=== PATIENT | male | born 1970 | race Caucasian/White ===

== ENCOUNTER 2019-04-06 12:30 | Inpatient (IN) | payer BC, OTHER ==
[~2019-04-06] VITALS: Ht 170.2 cm; Wt 97.5 kg
[~2019-04-06 12:30] MED LIST: BACTRIM DS TAB1 EACH PO; BENICAR20 MG; CARISOPRODOL 3350 MG PO; HYDROCHLOROTH12.5 MG PO; HYDROCHLOROTHIA25 M1; KEFLEX500 MG PO; LEVAQUIN 500 M500 M2; NAPROSYN500 MG PO; PERCOCET 5-3251 EACH PO; PREDNISONE 20 M20 MG; SOMA250 MG; ULTRAM 50MG TAB50 MG PO
[2019-04-06 12:50] VITALS: BP 160/91
[2019-04-06] MEDS ORDERED: ZESTRIL10 MG PO (12:55)
[2019-04-06] MEDS ORDERED: LOPRESSOR50 PO (12:57)
[2019-04-06 14:40] LABS: ABSOLUTE NEUTROPHILS 14.2 thou/uL (1.4-8.2); BASOPHILS 0.2 % (0.0-2.0); HEMATOCRIT 45.7 % (42.0-52.0); HEMOGLOBIN 15.6 gm/dL (14.0-18.0); LYMPHOCYTES 5.3 % (24.0-44.0); MCH 29.2 pg (26.0-34.0); MCHC 34.2 g/dL (28.0-37.0); MCV 85.3 fL (80.0-100.0); MONOCYTES 2.9 % (1.0-8.0); PLATELET COUNT 301 thou/uL (150-400); POLYS 91.6 % (36.0-66.0); RBC 5.36 mil/uL (4.50-6.00); RDW 12.8 % (10.5-14.5); WBC 15.5 thou/uL (4.0-11.0)
[2019-04-06 14:51] LABS: CALCIUM 9.6 mg/dL (8.5-10.1)
[2019-04-06 18:46] VITALS: BP 113/60
[2019-04-06] MEDS ORDERED: ZESTRIL40 MG PO (19:59)
[2019-04-06] MEDS ORDERED: INDAPAMIDE2.5 MG PO (20:00)
[2019-04-07 03:00] LABS: HEMATOCRIT 44.7 % (42.0-52.0); HEMOGLOBIN 15.2 gm/dL (14.0-18.0); MCH 29.6 pg (26.0-34.0); MCV 87.2 fL (80.0-100.0); RBC 5.12 mil/uL (4.50-6.00); RDW 12.8 % (10.5-14.5); WBC 14.7 thou/uL (4.0-11.0)
[2019-04-07 03:13] LABS: CALCIUM 8.9 mg/dL (8.5-10.1); CREATININE 1.1 mg/dL (0.7-1.3); POTASSIUM 4.4 mmol/L (3.5-5.1)
[2019-04-07 03:32] VITALS: BP 146/90
[2019-04-07 07:20] VITALS: BP 137/77
[2019-04-07 11:05] VITALS: BP 126/85
[2019-04-07 15:05] VITALS: BP 153/90
[2019-04-07 19:15] VITALS: BP 142/89
[2019-04-08 04:09] VITALS: BP 154/88
[2019-04-08 04:31] LABS: HEMATOCRIT 43.8 % (42.0-52.0); HEMOGLOBIN 14.4 gm/dL (14.0-18.0); MCH 28.7 pg (26.0-34.0); MCHC 32.9 g/dL (28.0-37.0); MCV 87.3 fL (80.0-100.0); RBC 5.01 mil/uL (4.50-6.00); RDW 12.9 % (10.5-14.5); WBC 22.9 thou/uL (4.0-11.0)
[2019-04-08 04:34] LABS: CALCIUM 8.9 mg/dL (8.5-10.1); CREATININE 1.1 mg/dL (0.7-1.3); POTASSIUM 4.6 mmol/L (3.5-5.1)
[2019-04-08 07:25] VITALS: BP 141/88
[2019-04-08 11:25] VITALS: BP 126/89
[2019-04-08 15:30] VITALS: BP 135/86
[2019-04-08 21:37] VITALS: BP 137/83
[2019-04-09 03:16] LABS: MCH 29.3 pg (26.0-34.0); MCHC 33.5 g/dL (28.0-37.0); MCV 87.5 fL (80.0-100.0); RBC 4.8 mil/uL (4.50-6.00); RDW 12.9 % (10.5-14.5); WBC 20.2 thou/uL (4.0-11.0)
[2019-04-09 03:22] LABS: CALCIUM 8.2 mg/dL (8.5-10.1); POTASSIUM 4.3 mmol/L (3.5-5.1)
[2019-04-09 03:49] VITALS: BP 138/67
[2019-04-09 07:25] VITALS: BP 150/90
[2019-04-09 16:50] VITALS: BP 152/97
[2019-04-09 19:29] VITALS: BP 150/83
[2019-04-10 04:00] VITALS: BP 140/90
[2019-04-10 08:40] VITALS: BP 155/98
[2019-04-10] MEDS ORDERED: MUCINEX DM ER1 EAC1 PO (09:23)
[2019-04-10] MEDS ORDERED: VENTOLIN HFA 1818 GM INH (09:24)
[2019-04-10] MEDS ORDERED: PREDNISONE 10 M10 MG PO (09:24)
[2019-04-10] MEDS ORDERED: LEVAQUIN 500 M500 M2 PO (09:25)
[2019-04-10 09:34] VITALS: BP 155/98
== END 2019-04-10 10:36 | disposition home or self-care (01) | DRG 192 ==
LOC: ER 12:30 → EROBS 16:31 → 2N 16:31 → ENTRNSPT 04-10 10:17 → EDTRNSPTSTS 04-10 10:23 → 2N 04-10 10:36
PROVIDERS: Emergency Medicine; ADMIT Hospitalist
DX: J44.1 Chronic obstructive pulmonary disease with (acute) exacerbation (principal); I10 Essential (primary) hypertension; F17.210 Nicotine dependence, cigarettes, uncomplicated; Z71.6 Tobacco abuse counseling; Z79.899 Other long term (current) drug therapy
CPT/HCPCS: 10081